=== PATIENT | female | born 1980 | race Caucasian/White ===

== ENCOUNTER 2017-10-25 18:28 | Emergency (ER) | payer OTHER ==
[2017-10-25 18:54] VITALS: BP 138/72
--- NOTE | 2017-10-25 19:05 | UC ---
Throat Pain/Nasal Pepe HPI - HPI Summary HPI Summary: Pt presents with c/o sudden onset of fever, cough, nasal congestion , sinus pressure and pain X 1 day. Pt took ibuprofen and claritin prior to arrival at clinic. with no improvement in symptoms - History of Current Complaint Chief Complaint: UCGeneralIllness Stated Complaint: SINUS/FEVER Time Seen by Provider: 10/25/17 18:53 Hx Obtained From: Patient Hx Last Menstrual Period: 10/07/17 ?: No Onset/Duration: Sudden Onset, Lasting Days - 1 Severity: Moderate Pain Intensity: 0 Cough: Nonproductive Associated Signs & Symptoms: Positive: Sinus Discomfort, Fever Related History: Seasonal Allergies - Epiglottits Risk Factors Epiglottis Risk Factors: Sudden Onset - Allergies/Home Medications Allergies/Adverse Reactions: Allergies Allergy/AdvReac Type Severity Reaction Status Date / Time cephalexin [From Keflex] Allergy Anaphylatic Verified 10/25/17 18:52 Shock Penicillins Allergy Anaphylatic Verified 10/25/17 18:52 Shock Home Medications: Home Medications Ibuprofen 200 mg PO Q8H 10/25/17 [History Confirmed 10/25/17] PMH/Surg Hx/FS Hx/Imm Hx Previously Healthy: Yes - Surgical History Surgical History: Yes Surgery Procedure, Year, and Place: RIGHT HAND. HYDRODISTENSION - Family History Known Family History: Positive: Cardiac Disease - Social History Occupation: Employed Full-time Lives: With Family Alcohol Use: None Substance Use Type: None Smoking Status (MU): Heavy Every Day Tobacco Smoker Amount Used/How Often: 1 PPD Have You Smoked in the Last Year: Yes Review of Systems Constitutional: Fever, Chills, Fatigue Skin: Negative Eyes: Negative ENT: Sinus Congestion, Sinus Pain/Tenderness Respiratory: Cough Cardiovascular: Negative Gastrointestinal: Negative Genitourinary: Negative Motor: Negative Neurovascular: Negative Musculoskeletal: Negative Neurological: Headache Psychological: Negative Is Patient Immunocompromised?: No All Other Systems Reviewed And Are Negative: Yes Physical Exam Triage Information Reviewed: Yes Appearance: Ill-Appearing, Pain Distress Vital Signs: Initial Vital Signs Temp 98.6 F 10/25/17 18:47 Pulse 89 10/25/17 18:47 Resp 24 10/25/17 18:47 BP 138/72 10/25/17 18:47 Pulse Ox 100 10/25/17 18:47 Vital Signs Reviewed: Yes Eye Exam: Normal ENT Exam: Other ENT: Positive: Nasal congestion, Nasal drainage, TM bulging - bilateral, Sinus tenderness Dental Exam: Normal Neck exam: Normal Respiratory Exam: Normal Cardiovascular Exam: Normal Musculoskeletal Exam: Normal Neurological Exam: Normal Psychological Exam: Normal Skin Exam: Normal Throat Pain/Nasal Course/Dx - Differential Dx/Diagnosis Differential Diagnosis/HQI/PQRI: Sinusitis, URI Provider Diagnoses: allergic rhinitis. URI Discharge - Sign-Out/Discharge Documenting (check all that apply): Patient Departure - Discharge Plan Condition: Stable Disposition: HOME Prescriptions: Cetirizine HCl/Pseudoephedrine [Zyrtec-D Tablet] 1 each PO DAILY #10 tab Fluticasone NASAL SPRAY 50MCG* [Flonase NASAL SPRAY 50MCG*] 2 spray BOTH NARES DAILY 7 Days #1 btl Patient Education Materials: Allergic Rhinitis (ED), Postnasal Drip (DC) Referrals: LATRELL Gan [Primary Care Provider] - If Needed - Billing Disposition and Condition Condition: STABLE Disposition: Home
== END 2017-10-25 19:25 | disposition home or self-care (01) ==
LOC: UCCORT 18:28
DX: J30.9 Allergic rhinitis, unspecified (principal); J06.9 Acute upper respiratory infection, unspecified; Z88.0 Allergy status to penicillin; Z88.1 Allergy status to other antibiotic agents; F17.210 Nicotine dependence, cigarettes, uncomplicated
CPT/HCPCS: 99212; G0463

== ENCOUNTER 2017-10-28 12:44 | Emergency (ER) | payer OTHER ==
[2017-10-28 13:10] VITALS: BP 127/75
[2017-10-28] MEDS ORDERED: Ibuprofen TAB* 600 MG PO ONE (13:37)
--- NOTE | 2017-10-28 13:37 | UC ---
Neck Pain HPI - HPI Summary HPI Summary: Pt this morning turned head and developed pain and spasm on left side.Pain worse with movement. No extremity pain, paresthesia. Pt has not taken analgesia , applied heat. pt has had similar sx in past but "not this bad" No cp, sob. no trauma Pt's medications reviewed this visit - History of Current Complaint Chief Complaint: UCUpperExtremity Stated Complaint: NECK COMPLAINT Time Seen by Provider: 10/28/17 13:14 Hx Obtained From: Patient Hx Last Menstrual Period: 10/26/17 Pain Intensity: 3 - Allergies/Home Medications Allergies/Adverse Reactions: Allergies Allergy/AdvReac Type Severity Reaction Status Date / Time cephalexin [From Keflex] Allergy Anaphylatic Verified 10/25/17 18:52 Shock Penicillins Allergy Anaphylatic Verified 10/25/17 18:52 Shock PMH/Surg Hx/FS Hx/Imm Hx Previously Healthy: Yes - Surgical History Surgical History: Yes Surgery Procedure, Year, and Place: RIGHT HAND. HYDRODISTENSION - Family History Known Family History: Positive: Cardiac Disease - Social History Occupation: Employed Full-time Lives: With Family Alcohol Use: None Substance Use Type: None Smoking Status (MU): Heavy Every Day Tobacco Smoker Amount Used/How Often: 1 PPD Have You Smoked in the Last Year: Yes Review Of Systems Musculoskeletal: Positive: Other: - neck pain All Other Systems Reviewed And Are Negative: Yes Physical Exam - Summary Physical Exam Summary: Vital Signs Reviewed: Yes A+Ox3, mild discomfort Eyes: Conjunctiva Clear, ALEXI. EOM intact and full ENT: Hearing grossly normal TM x 2 clear, mmoist, uvula midline, no exudate, no erythema Neck: Positive: Supple Respiratory: Positive: No respiratory distress, No accessory muscle use + CTA throughout no w/r Cardiovascular: RRR nl s1, s2 no m/r CBT <2 sec abd soft + BS nt/nd no guarding, no distension Musculoskeletal Exam: no pain c/t/l/s Pt with lateral rotation to left with TTP left SCM and left trapezius Pain increases with right lateral rotation and flexion full AROM upper ext b/l shoulder, elbow Neurological: Positive: Alert, + sensation throughout + thumb up, a ok, 5/5 grasp Psychological: Positive: Normal Response To Family Skin: Positive: no rash, no ecchymosis Triage Information Reviewed: Yes Vital Signs: Initial Vital Signs Temp 98.5 F 10/28/17 13:04 Pulse 75 10/28/17 13:04 Resp 18 10/28/17 13:04 BP 127/75 10/28/17 13:04 Pulse Ox 98 10/28/17 13:04 Neck Pain Course/Dx - Course Course Of Treatment: with left sided neck spasmand pain after turning heading htis morning palpable sapsm. CSM intact. motrin/apap neck collar support. heat. stretch. flexeril. rest. return precaution. work note - Differential Dx/Diagnosis Provider Diagnoses: muscle spasm Discharge - Sign-Out/Discharge Documenting (check all that apply): Patient Departure All imaging exams completed and their final reports reviewed: No Studies - Discharge Plan Condition: Stable Disposition: HOME Prescriptions: Cyclobenzaprine TAB* [Flexeril 10 MG TAB*] 5 - 10 mg PO Q8HR PRN #10 tab PRN Reason: muscle spasm Patient Education Materials: Spasmodic Torticollis (ED), Muscle Spasm (ED) Forms: *Gen. Provider Communication, *Work Release Referrals: No Primary Care Phys,NOPCP [Primary Care Provider] - Additional Instructions: - Okay to alternate ibuprofen (Advil, Motrin) 600mg and Tylenol product 1000mg every 3hours as needed for pain. Take with food. . Do NOT take for more than 4- 5 days. -Take flexeril - muscle relaxer as prescribed. This medication causes drowsiness. Do NOT drive, operate machinery or drink alcohol while taking -Apply moist heat to your back for 20 minutes at a time, 4-5 times a day. Once your muscles are warm, slow gentle stretching exercises are important - wear neck collar for support and comfort. -Contact your doctor today to arrange a follow-up appointment -If you pain is uncontrolled, you develop extremity weakness or any other concerns it is recommended you go to an emergency department for further treatment - Billing Disposition and Condition Condition: STABLE Disposition: Home
== END 2017-10-28 13:58 | disposition home or self-care (01) ==
LOC: UCCORT 12:44
DX: M62.838 Other muscle spasm (principal); Z88.0 Allergy status to penicillin; Z88.1 Allergy status to other antibiotic agents; F17.210 Nicotine dependence, cigarettes, uncomplicated
CPT/HCPCS: 99213; A9270-GY; G0463